=== PATIENT | male | born 1970 | race Caucasian/White ===

== ENCOUNTER 2018-04-21 10:55 | Emergency (ER) | payer OTHER, MEDICAID ==
[~2018-04-21] VITALS: Ht 165.1 cm; Wt 59.4 kg
[~2018-04-21 10:55] MED LIST: ATIVAN0.5 MG PO; CLEOCIN HCL150 MG PO; CLINDAMYCIN HC150 MG PO; HIGH BLOOD PRESSURE PO; HYDROXYZINE HCL25 M1 PO; IBUPROFEN 800800 M1 PO; NORCO 5-325 TA1 EACH PO; PREDNISONE 20 M20 MG PO; PRILOSEC OTC20 MG PO; VENTOLIN HFA 1818 GM INH
[2018-04-21] MEDS ORDERED: KEFLEX500 M1 PO (12:28)
[2018-04-21] MEDS ORDERED: NORCO 5-325 TA1 EACH PO (12:28)
[2018-04-21] MEDS ORDERED: IBUPROFEN 600600 M1 PO (12:28)
[2018-04-21 12:55] VITALS: BP 118/72
== END 2018-04-21 12:56 | disposition home or self-care (01) ==
LOC: M.ERS 10:55
DX: M25.561 Pain in right knee (principal); K08.89 Other specified disorders of teeth and supporting structures; K21.9 Gastro-esophageal reflux disease without esophagitis; I10 Essential (primary) hypertension; F41.9 Anxiety disorder, unspecified; F17.210 Nicotine dependence, cigarettes, uncomplicated; Z88.0 Allergy status to penicillin

== ENCOUNTER 2018-04-27 09:02 | Emergency (ER) | payer OTHER, MEDICAID ==
[~2018-04-27] VITALS: Ht 165.1 cm; Wt 59.4 kg
[~2018-04-27 09:02] MED LIST changes: +IBUPROFEN 600600 M1 PO; +KEFLEX500 M1 PO
[2018-04-27 09:14] VITALS: BP 151/95
[2018-04-27] MEDS ORDERED: NAPROSYN500 MG PO (09:34)
== END 2018-04-27 09:43 | disposition home or self-care (01) ==
LOC: M.ERS 09:02
DX: M25.561 Pain in right knee (principal); F41.9 Anxiety disorder, unspecified; I10 Essential (primary) hypertension; K21.9 Gastro-esophageal reflux disease without esophagitis; F17.210 Nicotine dependence, cigarettes, uncomplicated; Z88.0 Allergy status to penicillin

== ENCOUNTER 2018-10-29 09:41 | Emergency (ER) | payer OTHER, MEDICAID ==
[~2018-10-29] VITALS: Ht 165.1 cm; Wt 73.3 kg
[~2018-10-29 09:41] MED LIST changes: +NAPROSYN500 MG PO
[2018-10-29] MEDS ORDERED: VENTOLIN HFA 1818 GM INH (11:31)
[2018-10-29] MEDS ORDERED: MEDROLDOSEPACK PO (11:31)
[2018-10-29] MEDS ORDERED: NAPROSYN500 MG PO (11:31)
[2018-10-29 11:42] VITALS: BP 127/87
== END 2018-10-29 11:45 | disposition home or self-care (01) ==
LOC: M.ERS 09:41
DX: J44.1 Chronic obstructive pulmonary disease with (acute) exacerbation (principal); M94.0 Chondrocostal junction syndrome [Tietze]; F41.9 Anxiety disorder, unspecified; K21.9 Gastro-esophageal reflux disease without esophagitis; I10 Essential (primary) hypertension; F17.210 Nicotine dependence, cigarettes, uncomplicated; Z88.0 Allergy status to penicillin

== ENCOUNTER 2019-03-29 08:23 | Inpatient (IN) | payer OTHER ==
[~2019-03-29] VITALS: Ht 165.1 cm; Wt 71.7 kg
[~2019-03-29 08:23] MED LIST changes: +MEDROLDOSEPACK PO
[2019-03-29 08:29] VITALS: BP 135/90
[2019-03-29] MEDS ORDERED: PRILOSEC OTC20 MG PO (08:31)
[2019-03-29 09:19] LABS: ABSOLUTE BASOPHILS 0.1 thou/uL (0.0-0.2); ABSOLUTE EOSINOPHILS 0.1 thou/uL (0.0-0.7); ABSOLUTE LYMPHOCYTES 1.3 thou/uL (0.8-5.3); ABSOLUTE MONOCYTES 0.5 thou/uL (0.0-1.2); ABSOLUTE NEUTROPHILS 5.8 thou/uL (1.6-8.1); BASOPHILS 0.8 %; EOSINOPHILS 1.2 %; HEMATOCRIT 43.4 % (42.0-52.0); HEMOGLOBIN 14.8 gm/dL (14.0-18.0); LYMPHOCYTES 16.2 %; MCH 33.4 pg (26.0-34.0); MCHC 34.2 g/dL (28.0-37.0); MCV 97.8 fL (80.0-100.0); MONOCYTES 6.5 %; MPV 8.4 fl. (7.2-11.1); NUCLEATED RBCS 0 /100WBC; PLATELET COUNT* 212 thou/uL (150-400); POLYS 75.3 %; RBC 4.44 mil/uL (4.50-6.00); RDW-CV 13.4 % (10.5-14.5); WBC 7.8 thou/uL (4.0-11.0)
[2019-03-29 09:26] LABS: URINE BILIRUBIN NEGATIVE (Negative); URINE BLOOD NEGATIVE (Negative); URINE CLARITY CLEAR; URINE COLOR YELLOW; URINE GLUCOSE-RANDOM NEGATIVE (Negative); URINE KETONES NEGATIVE (Negative); URINE LEUKOCYTES-REFLEX NEGATIVE (Negative); URINE NITRITE-REFLEX NEGATIVE (Negative); URINE PROTEIN NEGATIVE (Negative); URINE SPECIFIC GRAVITY 1.015 (1.005-1.030); URINE UROBILINOGEN 0.2 E.U./dl (0.2-1.0)
[2019-03-29 09:28] LABS: CREATININE 1.9 mg/dL (0.6-1.3); POTASSIUM 4.3 mmol/L (3.5-5.1)
[2019-03-29 09:32] LABS: ALBUMIN 4.5 g/dL (3.4-5.0); TOTAL BILIRUBIN 0.8 mg/dL (<0.1-1.0); TOTAL PROTEIN 8.4 g/dL (6.4-8.2)
[2019-03-29 09:34] LABS: AMP/METHAMP Negative (Negative); BARBITURATES Negative (Negative); BENZODIAZEPINES Negative (Negative); COCAINE Negative (Negative); METHADONE Negative (Negative); OPIATES Negative (Negative); PCP Negative (Negative); THC Negative (Negative)
[2019-03-29 12:12] LABS: MAGNESIUM 2.4 mg/dL (1.8-2.4); PHOSPHORUS* 4.2 mg/dL (2.5-4.9)
[2019-03-29 12:50] VITALS: BP 115/83
[2019-03-29 13:00] VITALS: BP 109/74
[2019-03-29 16:16] VITALS: BP 123/68
[2019-03-29 20:00] VITALS: BP 103/65
[2019-03-30 00:05] VITALS: BP 99/60
[2019-03-30 04:00] VITALS: BP 108/68
[2019-03-30 05:25] LABS: ALBUMIN 3.1 g/dL (3.4-5.0); CALCIUM 7.9 mg/dL (8.5-10.1); MAGNESIUM 1.9 mg/dL (1.8-2.4); POTASSIUM 4.8 mmol/L (3.5-5.1); TOTAL BILIRUBIN 0.4 mg/dL (<0.1-1.0); TOTAL PROTEIN 6.3 g/dL (6.4-8.2)
[2019-03-30 07:50] VITALS: BP 128/94
[2019-03-30 11:40] VITALS: BP 96/60
[2019-03-30 16:25] VITALS: BP 123/104
[2019-03-30 20:00] VITALS: BP 135/87
[2019-03-31 02:06] LABS: GLYCOHEMOGLOBIN (HGB A1C) 4.9 % (4.8-5.6)
[2019-03-31 05:30] LABS: CALCIUM 8.2 mg/dL (8.5-10.1); CREATININE 0.7 mg/dL (0.6-1.3); POTASSIUM 4.4 mmol/L (3.5-5.1)
[2019-03-31 08:23] VITALS: BP 146/94
[2019-03-31] MEDS ORDERED: VITAMIN B-1100 M1 PO (09:48)
[2019-03-31] MEDS ORDERED: CENTRUM SILVER1 EAC2 PO (09:48)
[2019-03-31 10:29] VITALS: BP 146/94
[2019-03-31 11:05] VITALS: BP 146/94
[2019-03-31] MEDS ORDERED: HYDROCHLOROTH12.5 M1 PO (11:37)
== END 2019-03-31 11:30 | disposition home or self-care (01) | DRG 683 ==
LOC: M.ERS 08:23 → M.2W 09:55 → M.TBA-ER 09:55 → M.2W 12:54
PROVIDERS: Emergency Medicine; ADMIT Family Medicine
DX: N17.9 Acute kidney failure, unspecified (principal); E87.1 Hypo-osmolality and hyponatremia; F41.9 Anxiety disorder, unspecified; K21.9 Gastro-esophageal reflux disease without esophagitis; I10 Essential (primary) hypertension; E86.0 Dehydration; J44.9 Chronic obstructive pulmonary disease, unspecified; F17.210 Nicotine dependence, cigarettes, uncomplicated; F10.10 Alcohol abuse, uncomplicated; Z88.0 Allergy status to penicillin; Z79.899 Other long term (current) drug therapy

== ENCOUNTER 2019-07-09 22:52 | Inpatient (IN) | payer OTHER, MEDICAID ==
[~2019-07-09] VITALS: Ht 165.1 cm; Wt 74.8 kg
[~2019-07-09 22:52] MED LIST changes: +CENTRUM SILVER1 EAC2 PO; +HYDROCHLOROTH12.5 M1 PO; +VITAMIN B-1100 M1 PO
[2019-07-09 22:53] VITALS: BP 126/98
[2019-07-09 23:16] LABS: ABSOLUTE BASOPHILS 0.1 thou/uL (0.0-0.2); ABSOLUTE EOSINOPHILS 0.3 thou/uL (0.0-0.7); ABSOLUTE LYMPHOCYTES 3.2 thou/uL (0.8-5.3); ABSOLUTE MONOCYTES 0.8 thou/uL (0.0-1.2); ABSOLUTE NEUTROPHILS 4.2 thou/uL (1.6-8.1); BASOPHILS 1.3 %; EOSINOPHILS 3.8 %; HEMATOCRIT 39.6 % (42.0-52.0); HEMOGLOBIN 13.6 gm/dL (14.0-18.0); MCH 33.3 pg (26.0-34.0); MCHC 34.3 g/dL (28.0-37.0); MONOCYTES 9.4 %; NUCLEATED RBCS 0 /100WBC; PLATELET COUNT* 216 thou/uL (150-400); POLYS 48.5 %; RBC 4.08 mil/uL (4.50-6.00); RDW-CV 12.7 % (10.5-14.5); WBC 8.6 thou/uL (4.0-11.0)
[2019-07-09 23:18] LABS: URINE BILIRUBIN NEGATIVE (Negative); URINE BLOOD NEGATIVE (Negative); URINE CLARITY CLEAR; URINE COLOR STRAW; URINE GLUCOSE-RANDOM NEGATIVE (Negative); URINE KETONES NEGATIVE (Negative); URINE LEUKOCYTES-REFLEX NEGATIVE (Negative); URINE NITRITE-REFLEX NEGATIVE (Negative); URINE PROTEIN NEGATIVE (Negative); URINE SPECIFIC GRAVITY <= 1.005 (1.005-1.030); URINE UROBILINOGEN 0.2 E.U./dl (0.2-1.0)
[2019-07-09 23:24] LABS: CALCIUM 8.4 mg/dL (8.5-10.1); CREATININE 0.6 mg/dL (0.6-1.3); POTASSIUM 3.8 mmol/L (3.5-5.1)
[2019-07-09 23:27] LABS: PROTIME 10.2 Seconds (9.20-11.50)
[2019-07-09 23:35] LABS: ALBUMIN 3.9 g/dL (3.4-5.0); MAGNESIUM 1.8 mg/dL (1.8-2.4); TOTAL BILIRUBIN 0.6 mg/dL (<0.1-1.0); TOTAL PROTEIN 7.5 g/dL (6.4-8.2)
[2019-07-10 02:29] VITALS: BP 122/77
[2019-07-10 04:00] VITALS: BP 93/53
[2019-07-10 04:49] LABS: AMP/METHAMP Negative (Negative); BARBITURATES Negative (Negative); BENZODIAZEPINES Negative (Negative); COCAINE Negative (Negative); METHADONE Negative (Negative); OPIATES Negative (Negative); PCP Negative (Negative); THC Negative (Negative)
[2019-07-10 08:00] VITALS: BP 108/66
[2019-07-10 09:00] LABS: ABSOLUTE BASOPHILS 0.1 thou/uL (0.0-0.2); ABSOLUTE EOSINOPHILS 0.2 thou/uL (0.0-0.7); ABSOLUTE LYMPHOCYTES 1.6 thou/uL (0.8-5.3); ABSOLUTE MONOCYTES 0.3 thou/uL (0.0-1.2); ABSOLUTE NEUTROPHILS 2.2 thou/uL (1.6-8.1); BASOPHILS 1.3 %; EOSINOPHILS 4.4 %; HEMATOCRIT 37.1 % (42.0-52.0); HEMOGLOBIN 12.7 gm/dL (14.0-18.0); LYMPHOCYTES 36.9 %; MCH 33.2 pg (26.0-34.0); MCHC 34.3 g/dL (28.0-37.0); MONOCYTES 7.3 %; NUCLEATED RBCS 0 /100WBC; PLATELET COUNT* 215 thou/uL (150-400); POLYS 50.1 %; RBC 3.82 mil/uL (4.50-6.00); RDW-CV 13.2 % (10.5-14.5); WBC 4.4 thou/uL (4.0-11.0)
[2019-07-10 09:09] LABS: ALBUMIN 3.3 g/dL (3.4-5.0); CALCIUM 8.4 mg/dL (8.5-10.1); CREATININE 0.7 mg/dL (0.6-1.3); TOTAL BILIRUBIN 0.5 mg/dL (<0.1-1.0); TOTAL PROTEIN 6.5 g/dL (6.4-8.2)
[2019-07-10 11:05] VITALS: BP 117/82
[2019-07-10 15:02] VITALS: BP 110/66
[2019-07-10 21:42] VITALS: BP 132/79
[2019-07-11] VITALS: BP 97/56
[2019-07-11 04:00] VITALS: BP 139/84
[2019-07-11 04:17] LABS: ABSOLUTE BASOPHILS 0.1 thou/uL (0.0-0.2); ABSOLUTE EOSINOPHILS 0.2 thou/uL (0.0-0.7); ABSOLUTE LYMPHOCYTES 1.7 thou/uL (0.8-5.3); ABSOLUTE MONOCYTES 0.6 thou/uL (0.0-1.2); ABSOLUTE NEUTROPHILS 3.8 thou/uL (1.6-8.1); BASOPHILS 1.4 %; EOSINOPHILS 3.7 %; HEMATOCRIT 33.7 % (42.0-52.0); HEMOGLOBIN 11.6 gm/dL (14.0-18.0); MCH 33.6 pg (26.0-34.0); MCHC 34.4 g/dL (28.0-37.0); MCV 97.5 fL (80.0-100.0); MONOCYTES 9.3 %; NUCLEATED RBCS 0 /100WBC; PLATELET COUNT* 193 thou/uL (150-400); POLYS 59.6 %; RBC 3.46 mil/uL (4.50-6.00); RDW-CV 13.1 % (10.5-14.5); WBC 6.4 thou/uL (4.0-11.0)
[2019-07-11 04:43] LABS: CREATININE 0.8 mg/dL (0.6-1.3); POTASSIUM 4.2 mmol/L (3.5-5.1)
[2019-07-11 08:10] VITALS: BP 161/91
[2019-07-11] MEDS ORDERED: FOLIC ACID1 MG PO (11:25)
[2019-07-11] MEDS ORDERED: PRILOSEC OTC20 MG PO (11:30)
[2019-07-11] MEDS ORDERED: PRENATAL PO (11:41)
[2019-07-11] MEDS ORDERED: VITAMIN B-1100 M2 PO (11:42)
[2019-07-11 11:43] VITALS: BP 161/91
--- NOTE | 2019-07-12 13:57 | EKG ---
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1970 Requested By: Samantha Menon Order Number: [id number] MD: Jey Farris Measurements Intervals [place] Rate: 80 P: 75 NE: 152 QRS: 233 QRSD: 94 T: 31 QT: 375 QTc: 433 Interpretive Statements Sinus rhythm Probable left atrial enlargement Markedly posterior QRS axis Consider right ventricular hypertrophy Baseline wander in lead(s) II,III,aVF Compared to ECG 06/16/2017 15:27:44 Posterior QRS axis now present Sinus tachycardia no longer present Electronically Signed On 07-12-2019 13:56:35 [employer] by Jey Farris [email or web address] <ELECTRONICALLY SIGNED> By: Jey Farris MD, FACC 07/12/19 1356 02 02 Jey Farris MD, FACC /EPI
== END 2019-07-11 12:24 | disposition home or self-care (01) | DRG 641 ==
LOC: M.ERS 22:52 → M.TBA-ER 07-10 01:38 → M.2W 07-10 02:30
PROVIDERS: Emergency Medicine; Internal Medicine; ADMIT Internal Medicine
DX: E87.1 Hypo-osmolality and hyponatremia (principal); F41.9 Anxiety disorder, unspecified; K21.9 Gastro-esophageal reflux disease without esophagitis; I10 Essential (primary) hypertension; J44.9 Chronic obstructive pulmonary disease, unspecified; F17.210 Nicotine dependence, cigarettes, uncomplicated; Y90.9 Presence of alcohol in blood, level not specified; F10.229 Alcohol dependence with intoxication, unspecified; Z23 Encounter for immunization; Z88.0 Allergy status to penicillin

== ENCOUNTER 2019-09-23 23:05 | Emergency (ER) | payer OTHER, MEDICAID ==
[~2019-09-23] VITALS: Ht 175.3 cm; Wt 63.5 kg
[~2019-09-23 23:05] MED LIST changes: +FOLIC ACID1 MG PO; +PRENATAL PO; +VITAMIN B-1100 M2 PO
[2019-09-24 00:23] LABS: ABSOLUTE BASOPHILS 0.1 thou/uL (0.0-0.2); ABSOLUTE EOSINOPHILS 0.2 thou/uL (0.0-0.7); ABSOLUTE LYMPHOCYTES 2.5 thou/uL (0.8-5.3); ABSOLUTE MONOCYTES 0.6 thou/uL (0.0-1.2); ABSOLUTE NEUTROPHILS 2.5 thou/uL (1.6-8.1); BASOPHILS 2.3 %; EOSINOPHILS 3.7 %; HEMATOCRIT 40.5 % (42.0-52.0); LYMPHOCYTES 41.8 %; MCH 33.4 pg (26.0-34.0); MCHC 34.5 g/dL (28.0-37.0); MCV 96.8 fL (80.0-100.0); MONOCYTES 9.9 %; MPV 8.6 fl. (7.2-11.1); NUCLEATED RBCS 0 /100WBC; PLATELET COUNT* 227 thou/uL (150-400); POLYS 42.3 %; RBC 4.18 mil/uL (4.50-6.00); RDW-CV 13.2 % (10.5-14.5); WBC 5.9 thou/uL (4.0-11.0)
[2019-09-24 00:28] LABS: CALCIUM 8.6 mg/dL (8.5-10.1); CREATININE 0.7 mg/dL (0.6-1.3)
[2019-09-24 00:32] LABS: TOTAL BILIRUBIN 0.4 mg/dL (<0.1-1.0); TOTAL PROTEIN 8.2 g/dL (6.4-8.2)
[2019-09-24 00:32] LABS: URINE BILIRUBIN NEGATIVE (Negative); URINE BLOOD NEGATIVE (Negative); URINE CLARITY CLEAR; URINE COLOR STRAW; URINE GLUCOSE-RANDOM NEGATIVE (Negative); URINE KETONES NEGATIVE (Negative); URINE LEUKOCYTES-REFLEX NEGATIVE (Negative); URINE NITRITE-REFLEX NEGATIVE (Negative); URINE PROTEIN NEGATIVE (Negative); URINE SPECIFIC GRAVITY <= 1.005 (1.005-1.030); URINE UROBILINOGEN 0.2 E.U./dl (0.2-1.0)
[2019-09-24] MEDS ORDERED: NORCO 5-325 TA1 EAC1 PO (02:05)
[2019-09-24] MEDS ORDERED: FLEXERIL PO (02:05)
[2019-09-24] MEDS ORDERED: IBUPROFEN 800800 M1 PO (02:05)
[2019-09-24 02:14] VITALS: BP 129/93
--- NOTE | 2019-09-24 10:15 | EKG ---
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[place] : 1970 Requested By: Bo Mcfarland Order Number: [id number] MD: Jey Farris Measurements Intervals [place] Rate: 81 P: 61 [place]: 152 QRS: 242 QRSD: 85 T: 39 QT: 371 QTc: 431 Interpretive Statements Sinus rhythm Left anterior fascicular block Abnormal R-wave progression, late transition Compared to ECG 07/09/2019 23:03:38 no change Electronically Signed On 09-24-2019 10:14:34 [employer] AUTHORIZATION SPECIALIST by Jey Farris [email or web address] <ELECTRONICALLY SIGNED> By: Jey Farris MD, [facility] 09/24/19 1014 0021 0021 Jey Farris MD, [facility] /EPI
== END 2019-09-24 02:14 | disposition home or self-care (01) ==
LOC: M.ERS 23:05
PROVIDERS: Emergency Medicine Emergency Medical Services
DX: M54.5 Low back pain (principal); R19.7 Diarrhea, unspecified; F17.210 Nicotine dependence, cigarettes, uncomplicated; F41.9 Anxiety disorder, unspecified; K21.9 Gastro-esophageal reflux disease without esophagitis; I10 Essential (primary) hypertension; J44.9 Chronic obstructive pulmonary disease, unspecified; R05 Cough; Z88.0 Allergy status to penicillin